=== PATIENT | female | born 1965 | race Caucasian/White ===

== ENCOUNTER 2017-09-04 09:10 | Day surgery (SDC) | payer BC ==
[~2017-09-04 09:10] MED LIST: Lactated Ringers 1,000 ML IV SCH; Midazolam 1 MG/ML 2 ML SDV ONE; Propofol 200 MG/20 ML SDV ONE; Sodium Chloride 0.9% 10 ML Syringe FLUSH PRN; Sodium Chloride 0.9% 2.5 ML Syringe FLUSH PRN; fentaNYL 100 MCG/2 ML SDV ONE
--- NOTE | 2017-09-04 11:25 | PCM.PREANE ---
Preanesthetic Assessment - Anesthesia/Transfusion/Family Hx Anesthesia History: Prior Anesthesia Without Reaction Family History of Anesthesia Reaction: No Transfusion History: No Prior Transfusion(s) Intubation History: Unknown - Review of Systems General: No Symptoms Pulmonary: No Symptoms Cardiovascular: No Symptoms Gastrointestinal: Constipation Neurological: No Symptoms Other: Reports: None - Physical Assessment NPO Status Date: 09/03/17 NPO Status Time: 23:00 O2 Sat by Pulse Oximetry: 97 Respiratory Rate: 17 Vital Signs: Last Vital Signs Temp 37.5 C 09/04/17 09:45 Pulse 85 09/04/17 09:45 Resp 17 09/04/17 09:45 BP 163/87 H 09/04/17 09:45 Pulse Ox 97 09/04/17 09:45 Height: 1.65 m Weight: 72.575 kg ASA Class: 3 Mental Status: Alert & Oriented x3 Airway Class: Mallampati = 2 Dentition: Reports: Dentures (upper) Thyro-Mental Finger Breadths: 3 Mouth Opening Finger Breadths: 2 ROM/Head Extension: Limited/Partial Lungs: Clear to Auscultation, Normal Respiratory Effort Cardiovascular: Regular Rate, Regular Rhythm - Allergies Allergies/Adverse Reactions: Allergies Allergy/AdvReac Type Severity Reaction Status Date / Time amoxicillin Allergy Itching Verified 08/29/17 16:49 ampicillin Allergy Itching Verified 08/29/17 16:49 morphine Allergy Itching Verified 08/29/17 16:49 - Blood Blood Available: No - Anesthesia Plan Pre-Op Medication Ordered: None - Acknowledgements Anesthesia Type Planned: MAC Pt an Appropriate Candidate for the Planned Anesthesia: Yes Alternatives and Risks of Anesthesia Discussed w Pt/Guardian: Yes Pt/Guardian Understands and Agrees with Anesthesia Plan: Yes PreAnesthesia Questionnaire Other HEENT History: wears glasses, contacts .... has upper denture and lower permanent partial denture Cardiovascular History: Reports: High Cholesterol, Hypertension Gastrointestinal History: Reports: Chronic Constipation, Chronic Diarrhea Musculoskeletal History: Reports: Arthritis Endocrine/Metabolic History: Reports: Hypothyroidism Dermatologic History: Reports: Psoriasis - Past Surgical History HEENT Surgical History: Reports: Naso-Sinus Surgery, Tonsillectomy - SUBSTANCE USE Smoking Status *Q: Current Every Day Smoker Tobacco Use Within Last Twelve Months: Cigarettes Recreational Drug Use History: No - HOME MEDS Home Medications: Home Meds Levothyroxine Sodium [Synthroid] 125 mcg PO DAILY 08/29/17 [History] Lisinopril/Hydrochlorothiazide [Lisinopril-Hctz 10-12.5 mg Tab] 1 tab PO DAILY 08/29/17 [History] atorvaSTATin Calcium [Atorvastatin Calcium] 40 mg PO DAILY 08/29/17 [History] - CURRENT (IN HOUSE) MEDS Current Meds: Current Medications Lactated Ringer's (Ringers, Lactated) 1,000 mls @ 125 mls/hr IV ASDIRECTED MELL Sodium Chloride (Saline Flush) 10 ml FLUSH ASDIRECTED PRN PRN Reason: Keep Vein Open Sodium Chloride (Saline Flush) 2.5 ml FLUSH ASDIRECTED PRN PRN Reason: Keep Vein Open Sodium Chloride (Saline Flush) 10 ml FLUSH ASDIRECTED PRN PRN Reason: Keep Vein Open Sodium Chloride (Saline Flush) 2.5 ml FLUSH ASDIRECTED PRN PRN Reason: Keep Vein Open Discontinued Medications Fentanyl (Sublimaze) Confirm Administered Dose 100 mcg .ROUTE .STK-MED ONE Stop: 09/04/17 07:43 Midazolam HCl (Versed 1 Mg/Ml) Confirm Administered Dose 2 mg .ROUTE .STK-MED ONE Stop: 09/04/17 07:43 Propofol (Diprivan 20 Ml) Confirm Administered Dose 200 mg .ROUTE .STK-MED ONE Stop: 09/04/17 07:43
[2017-09-04] MEDS ORDERED: Propofol 200 MG/20 ML SDV ONE (12:30)
--- NOTE | 2017-09-04 13:00 | PCM.OPNOTE ---
- General Post-Op/Procedure Note Date of Surgery/Procedure: 09/04/17 Operative Procedure(s): Diagnostic colonoscopy Findings: Sigmoid colon and rectal polyp, diverticulosis Pre Op Diagnosis: Chronic constipation that is worsening Post-Op Diagnosis: IBS-C, rectal polyp, sigmoid colon polyp, diverticulosis Anesthesia Technique: MEE Primary Surgeon: Sheila Truong Condition: Good
--- NOTE | 2017-09-04 20:32 | OR ---
SURGEON: ANNA ERNST MD DATE OF PROCEDURE: 09/04/2017 PREOPERATIVE DIAGNOSIS: Change in bowel habits. POSTOPERATIVE DIAGNOSES: 1. Diverticulosis. 2. Grade 3 hemorrhoids. 3. Sigmoid colon polyp. 4. Rectal polyp. 5. Irritable bowel syndrome/constipation type. PROCEDURE PERFORMED: Diagnostic colonoscopy. ANESTHESIA: MAC. INSTRUMENT USED: Olympus colonoscope. EXTENT OF EXAM: To the cecum. PREPARATION: Good. LIMITATIONS: None. INDICATION FOR EXAMINATION: The patient is a 52-year-old female, who complains of a change in her bowel habits with difficult to manage constipation. The decision was made to perform a diagnostic colonoscopy. We discussed the procedure, expected perioperative course, and risks including bleeding, infection, or damage to surrounding structures including perforation. The patient verbalized understanding and wishes to proceed. PROCEDURE IN DETAIL: The patient was brought in to the endoscopy suite and placed in the left lateral decubitus position. A time-out was completed verifying the patient's name, age, date of , allergies, and procedure to be performed. Monitored anesthesia care was induced and continuous oxygen was provided via nasal cannula. After adequate sedation was achieved, a digital rectal exam was performed. This exam revealed grade 3 hemorrhoids. A well lubricated colonoscope was then inserted in the rectum and advanced under direct visualization to the level of cecum. The cecum was identified by both visual and anatomic landmarks. A photograph was taken of the cecal cap. However, I was unable to retroflex the scope within the cecum due to looping of the scope more proximally. The scope was then fully withdrawn while examining the color, texture, anatomy, and integrity of the mucosa from the cecum to the anal canal. The patient was noted to have a small polyp in the sigmoid colon and in the rectum. Both were removed using cold biopsy forceps. The patient also had some mild diverticulosis within the distal aspect of the colon. The scope was then brought into the rectum and retroflexed to allow visualization of the anal canal opening. This confirmed the finding of hemorrhoids, but was otherwise normal. The scope was then straightened out and removed from the patient. The cecum to anus time was 26 minutes. The patient tolerated the procedure well and was taken to PACU in stable condition. ENDOSCOPIC DIAGNOSES: 1. Diverticulosis. 2. Grade 3 hemorrhoids. 3. Sigmoid colon polyp. 4. Rectal polyp. 5. Irritable bowel syndrome/constipation type. RECOMMENDATIONS: Follow up in clinic in 2 weeks. I started the patient on Dulcolax tablets daily to see if this improves her constipation. CHRISTAL ZAYAS /[id number]
== END 2017-09-04 14:00 | disposition home or self-care (01) ==
LOC: MERGE 09:10 → MW.SDS 09:10
PROVIDERS: ATTEND Surgery
DX: D12.5 Benign neoplasm of sigmoid colon (principal); K62.1 Rectal polyp; K57.30 Diverticulosis of large intestine without perforation or abscess without bleeding; K64.2 Third degree hemorrhoids; I10 Essential (primary) hypertension; E78.00 Pure hypercholesterolemia, unspecified; E03.9 Hypothyroidism, unspecified; Z88.1 Allergy status to other antibiotic agents; Z88.8 Allergy status to other drugs, medicaments and biological substances; Z79.899 Other long term (current) drug therapy; F17.210 Nicotine dependence, cigarettes, uncomplicated
CPT/HCPCS: 45380; 88305; J2250; J3010; J7120; J2704

== ENCOUNTER 2020-09-02 11:23 | Emergency (ER) | payer BC ==
[2020-09-02] MEDS ORDERED: methylPREDNISolone Sodium Succinate 125 MG/2 ML SDV IVPUSH ONE (11:26)
[2020-09-02] MEDS ORDERED: LORazepam 2 MG/ML SDV IVPUSH ONE (11:26)
[2020-09-02] MEDS ORDERED: Sodium Chloride 0.9% 2.5 ML Syringe FLUSH PRN (11:26)
[2020-09-02] MEDS ORDERED: Albuterol/Ipratropium 3.0-0.5 MG/3 ML Neb Soln NEB ONE (11:26)
[2020-09-02] MEDS ORDERED: Sodium Chloride 0.9% 10 ML Syringe FLUSH PRN (11:26)
--- NOTE | 2020-09-02 11:29 | EDM.PDOC ---
ED HPI GENERAL MEDICAL PROBLEM - General Chief Complaint: Respiratory Problem Stated Complaint: TROUBLE BREATHING Time Seen by Provider: 09/02/20 11:29 Source of Information: Reports: Patient History Limitations: Reports: Respiratory Distress - History of Present Illness INITIAL COMMENTS - FREE TEXT/NARRATIVE: 55-year-old female past medical history hypertension, hypothyroidism presents for difficulty breathing. History is limited secondary to respiratory distress. Patient was apparently in normal state of health and began choking while she was swallowing something and has ever since had difficulty breathing. She arrives quite tachypneic and using accessory muscles. We will get additional history after initial assessment. - Related Data Allergies Allergy/AdvReac Type Severity Reaction Status Date / Time amoxicillin Allergy Itching Verified 09/02/20 11:58 ampicillin Allergy Itching Verified 09/02/20 11:58 morphine Allergy Itching Verified 09/02/20 11:58 Home Meds: Home Meds Levothyroxine Sodium [Synthroid] 125 mcg PO DAILY 08/29/17 [History] Lisinopril/Hydrochlorothiazide [Lisinopril-Hctz 10-12.5 mg Tab] 1 tab PO DAILY 08/29/17 [History] atorvaSTATin Calcium [Atorvastatin Calcium] 40 mg PO DAILY 08/29/17 [History] Docusate Sodium [Dulcolax Stool Softener] 100 mg PO DAILY #30 capsule 09/04/17 [Rx] predniSONE [Prednisone] 40 mg PO DAILY 5 Days #10 tablet 09/02/20 [Rx] Past Medical History Other HEENT History: wears glasses, contacts .... has upper denture and lower permanent partial denture Cardiovascular History: Reports: High Cholesterol, Hypertension Gastrointestinal History: Reports: Chronic Constipation, Chronic Diarrhea Musculoskeletal History: Reports: Arthritis Endocrine/Metabolic History: Reports: Hypothyroidism Dermatologic History: Reports: Psoriasis - Past Surgical History HEENT Surgical History: Reports: Naso-Sinus Surgery, Tonsillectomy ED ROS GENERAL - Review of Systems Review Of Systems: Comprehensive ROS is negative, except as noted in HPI. ED EXAM, GENERAL - Physical Exam Exam: See Below Exam Limited By: No Limitations General Appearance: Alert, WD/WN, Anxious, Mild Distress Nose: Normal Inspection Throat/Mouth: Normal Oropharynx Head: Atraumatic, Normocephalic Neck: Normal Inspection Respiratory/Chest: Other (Bilateral diminished lung sounds, tachypnea, shallow breathing, no overt wheezing, transmitted upper airway noises) Cardiovascular: Normal Peripheral Pulses, No Edema, Tachycardia Extremities: Normal Inspection Neurological: Alert Psychiatric: Normal Affect, Anxious Skin Exam: Warm, Dry, Intact, Normal Color #1 Interpretation EKG Date: 09/02/20 Time: 11:21 Rhythm: NSR Rate (Beats/Min): 99 Palacios: Normal P-Wave: Present QRS: Normal ST-T: Normal QT: Normal TX/PQ Interval: 199 Comparison: NA - No Prior EKG EKG Interpretation Comments: Poor baseline obscures interpretation, no overt ischemic changes, normal sinus rhythm Course - Vital Signs Last Recorded V/S: Last Vital Signs Temp 97 F 09/02/20 11:23 Pulse 82 09/02/20 13:14 Resp 16 09/02/20 13:14 BP 98/70 09/02/20 13:14 Pulse Ox 94 L 09/02/20 13:14 - Orders/Labs/Meds Orders: Active Orders 24 hr Category Date Time Status Cardiac Monitoring [RC] . DIRECTED Care 09/02/20 11:27 Active EKG Documentation Completion [RC] STAT Care 09/02/20 11:26 Active Pulse Oximetry [RC] ASDIRECTED Care 09/02/20 11:27 Active RT Aerosol Therapy [RC] ASDIRECTED Care 09/02/20 11:26 Active Sodium Chloride 0.9% [Saline Flush] Med 09/02/20 11:26 Active 10 ml FLUSH ASDIRECTED PRN Sodium Chloride 0.9% [Saline Flush] Med 09/02/20 11:26 Active 2.5 ml FLUSH ASDIRECTED PRN Saline Lock Insert [OM.PC] Stat Oth 09/02/20 11:27 Ordered Medication Orders Sodium Chloride (Saline Flush) 10 ml FLUSH ASDIRECTED PRN PRN Reason: Keep Vein Open Last Admin: 09/02/20 11:32 Dose: 10 ml Documented by: KARTIK Sodium Chloride (Saline Flush) 2.5 ml FLUSH ASDIRECTED PRN PRN Reason: Keep Vein Open Last Admin: 09/02/20 11:32 Dose: 2.5 ml Documented by: KARTIK Labs: Laboratory Tests 09/02/20 09/02/20 09/02/20 Range/Units 11:31 11:31 11:31 WBC 10.87 (4.0-11.0) K/uL RBC 4.55 (4.30-5.90) M/uL Hgb 13.3 (12.0-16.0) g/dL Hct 40.3 (36.0-46.0) % MCV 88.6 (80.0-98.0) fL MCH 29.2 (27.0-32.0) pg MCHC 33.0 (31.0-37.0) g/dL RDW Std Deviation 40.5 (28.0-62.0) fl RDW Coeff of Deo 13 (11.0-15.0) % Plt Count 352 (150-400) K/uL MPV 9.40 (7.40-12.00) fL Neut % (Auto) 65.1 (48.0-80.0) % Lymph % (Auto) 27.8 (16.0-40.0) % Churchill % (Auto) 5.2 (0.0-15.0) % Eos % (Auto) 1.6 (0.0-7.0) % Baso % (Auto) 0.3 (0.0-1.5) % Neut # (Auto) 7.1 H (1.4-5.7) K/uL Lymph # (Auto) 3.0 H (0.6-2.4) K/uL Churchill # (Auto) 0.6 (0.0-0.8) K/uL Eos # (Auto) 0.2 (0.0-0.7) K/uL Baso # (Auto) 0.0 (0.0-0.1) K/uL Nucleated RBC % 0.0 /100WBC Nucleated RBCs # 0 K/uL INR APTT (18.6-31.3) SEC D-Dimer, Quantitative (0.0-0.50) mg/L FEU ABG pH (7.35-7.45) ABG pCO2 (35-45) mmHG ABG pO2 (75-100) mmHG ABG HCO3 (22-26) mEq/L ABG Total CO2 ABG Base Excess (-2.0-2.0) VBG pH 7.51 H (7.31-7.41) VBG pCO2 30 L (35-45) mmHG VBG pO2 36 (30-40) mmHG VBG HCO3 24 (22-30) mEq/L VBG Total CO2 21 L (41-51) mmol/L VBG Base Excess 1.6 (-3.0-3.0) Sodium 134 L (136-145) mmol/L Potassium 3.5 (3.5-5.1) mmol/L Chloride 96 L (98-107) mmol/L Carbon Dioxide 22.5 (21.0-32.0) mmol/L BUN 14 (7.0-18.0) mg/dL Creatinine 1.0 (0.6-1.0) mg/dL Est Cr Clr Drug Dosing TNP Estimated GFR (MDRD) 57.1 ml/min Glucose 187 H (74-106) mg/dL Calcium 9.5 (8.5-10.1) mg/dL Magnesium 1.7 L (1.8-2.4) mg/dL Total Bilirubin 0.9 (0.2-1.0) mg/dL AST 13 L (15-37) IU/L ALT 34 (14-63) IU/L Alkaline Phosphatase 66 (46-116) U/L Troponin I < 0.050 (0.000-0.056) ng/mL B-Natriuretic Peptide (<100) PG/ML Total Protein 7.7 (6.4-8.2) g/dL Albumin 3.7 (3.4-5.0) g/dL Globulin 4.0 (2.6-4.0) g/dL Albumin/Globulin Ratio 0.9 (0.9-1.6) Free T4 (0.76-1.46) ng/dL TSH 3rd Generation < 0.01 L (0.36-3.74) uIU/mL SARS-CoV-2 RNA (YANELY) (NEGATIVE) 09/02/20 09/02/20 09/02/20 Range/Units 11:31 11:31 11:31 WBC (4.0-11.0) K/uL RBC (4.30-5.90) M/uL Hgb (12.0-16.0) g/dL Hct (36.0-46.0) % MCV (80.0-98.0) fL MCH (27.0-32.0) pg MCHC (31.0-37.0) g/dL RDW Std Deviation (28.0-62.0) fl RDW Coeff of Deo (11.0-15.0) % Plt Count (150-400) K/uL MPV (7.40-12.00) fL Neut % (Auto) (48.0-80.0) % Lymph % (Auto) (16.0-40.0) % Churchill % (Auto) (0.0-15.0) % Eos % (Auto) (0.0-7.0) % Baso % (Auto) (0.0-1.5) % Neut # (Auto) (1.4-5.7) K/uL Lymph # (Auto) (0.6-2.4) K/uL Churchill # (Auto) (0.0-0.8) K/uL Eos # (Auto) (0.0-0.7) K/uL Baso # (Auto) (0.0-0.1) K/uL Nucleated RBC % /100WBC Nucleated RBCs # K/uL INR 1.01 APTT 26.1 (18.6-31.3) SEC D-Dimer, Quantitative 0.60 H (0.0-0.50) mg/L FEU ABG pH (7.35-7.45) ABG pCO2 (35-45) mmHG ABG pO2 (75-100) mmHG ABG HCO3 (22-26) mEq/L ABG Total CO2 ABG Base Excess (-2.0-2.0) VBG pH (7.31-7.41) VBG pCO2 (35-45) mmHG VBG pO2 (30-40) mmHG VBG HCO3 (22-30) mEq/L VBG Total CO2 (41-51) mmol/L VBG Base Excess (-3.0-3.0) Sodium (136-145) mmol/L Potassium (3.5-5.1) mmol/L Chloride (98-107) mmol/L Carbon Dioxide (21.0-32.0) mmol/L BUN (7.0-18.0) mg/dL Creatinine (0.6-1.0) mg/dL Est Cr Clr Drug Dosing Estimated GFR (MDRD) ml/min Glucose (74-106) mg/dL Calcium (8.5-10.1) mg/dL Magnesium (1.8-2.4) mg/dL Total Bilirubin (0.2-1.0) mg/dL AST (15-37) IU/L ALT (14-63) IU/L Alkaline Phosphatase (46-116) U/L Troponin I (0.000-0.056) ng/mL B-Natriuretic Peptide 34 (<100) PG/ML Total Protein (6.4-8.2) g/dL Albumin (3.4-5.0) g/dL Globulin (2.6-4.0) g/dL Albumin/Globulin Ratio (0.9-1.6) Free T4 2.09 H (0.76-1.46) ng/dL TSH 3rd Generation (0.36-3.74) uIU/mL SARS-CoV-2 RNA (YANELY) (NEGATIVE) 09/02/20 09/02/20 Range/Units 11:43 12:31 WBC (4.0-11.0) K/uL RBC (4.30-5.90) M/uL Hgb (12.0-16.0) g/dL Hct (36.0-46.0) % MCV (80.0-98.0) fL MCH (27.0-32.0) pg MCHC (31.0-37.0) g/dL RDW Std Deviation (28.0-62.0) fl RDW Coeff of Deo (11.0-15.0) % Plt Count (150-400) K/uL MPV (7.40-12.00) fL Neut % (Auto) (48.0-80.0) % Lymph % (Auto) (16.0-40.0) % Churchill % (Auto) (0.0-15.0) % Eos % (Auto) (0.0-7.0) % Baso % (Auto) (0.0-1.5) % Neut # (Auto) (1.4-5.7) K/uL Lymph # (Auto) (0.6-2.4) K/uL Churchill # (Auto) (0.0-0.8) K/uL Eos # (Auto) (0.0-0.7) K/uL Baso # (Auto) (0.0-0.1) K/uL Nucleated RBC % /100WBC Nucleated RBCs # K/uL INR APTT (18.6-31.3) SEC D-Dimer, Quantitative (0.0-0.50) mg/L FEU ABG pH 7.431 (7.35-7.45) ABG pCO2 39 (35-45) mmHG ABG pO2 53 L (75-100) mmHG ABG HCO3 26 (22-26) mEq/L ABG Total CO2 23.8 ABG Base Excess 1.8 (-2.0-2.0) VBG pH (7.31-7.41) VBG pCO2 (35-45) mmHG VBG pO2 (30-40) mmHG VBG HCO3 (22-30) mEq/L VBG Total CO2 (41-51) mmol/L VBG Base Excess (-3.0-3.0) Sodium (136-145) mmol/L Potassium (3.5-5.1) mmol/L Chloride (98-107) mmol/L Carbon Dioxide (21.0-32.0) mmol/L BUN (7.0-18.0) mg/dL Creatinine (0.6-1.0) mg/dL Est Cr Clr Drug Dosing Estimated GFR (MDRD) ml/min Glucose (74-106) mg/dL Calcium (8.5-10.1) mg/dL Magnesium (1.8-2.4) mg/dL Total Bilirubin (0.2-1.0) mg/dL AST (15-37) IU/L ALT (14-63) IU/L Alkaline Phosphatase (46-116) U/L Troponin I (0.000-0.056) ng/mL B-Natriuretic Peptide (<100) PG/ML Total Protein (6.4-8.2) g/dL Albumin (3.4-5.0) g/dL Globulin (2.6-4.0) g/dL Albumin/Globulin Ratio (0.9-1.6) Free T4 (0.76-1.46) ng/dL TSH 3rd Generation (0.36-3.74) uIU/mL SARS-CoV-2 RNA (YANELY) NEGATIVE (NEGATIVE) Meds: Medications Generic Name Dose Route Start Last Admin Trade Name Freq PRN Reason Stop Dose Admin Sodium Chloride 10 ml 09/02/20 11:26 09/02/20 11:32 Saline Flush FLUSH 10 ml ASDIRECTED PRN Administration Keep Vein Open Sodium Chloride 2.5 ml 09/02/20 11:26 09/02/20 11:32 Saline Flush FLUSH 2.5 ml ASDIRECTED PRN Administration Keep Vein Open Discontinued Medications Generic Name Dose Route Start Last Admin Trade Name Freq PRN Reason Stop Dose Admin Albuterol/Ipratropium 3 ml 09/02/20 11:26 09/02/20 11:33 Duoneb 3.0-0.5 Mg/3 Ml NEB 09/02/20 11:27 3 ml ONETIME ONE Administration Sodium Chloride 1,000 mls @ 999 mls/hr 09/02/20 12:23 09/02/20 12:25 Normal Saline IV 09/02/20 13:23 999 mls/hr .Bolus ONE Administration Iopamidol 100 ml 09/02/20 13:52 09/02/20 13:53 Isovue-370 (76%) IVPUSH 09/02/20 13:53 100 ml ONETIME ONE Administration Lorazepam 1 mg 09/02/20 11:26 09/02/20 11:33 Ativan IVPUSH 09/02/20 11:27 1 mg ONETIME ONE Administration Lorazepam Confirm 09/02/20 11:31 09/02/20 11:40 Ativan Administered 09/02/20 11:32 Not Given Dose 2 mg .ROUTE .STK-MED ONE Methylprednisolone Sodium Succinate 125 mg 09/02/20 11:26 09/02/20 11:33 Solu-Medrol IVPUSH 09/02/20 11:27 125 mg ONETIME ONE Administration Methylprednisolone Sodium Succinate Confirm 09/02/20 11:31 09/02/20 11:40 Solu-Medrol Administered 09/02/20 11:32 Not Given Dose 125 mg .ROUTE .STK-MED ONE - Re-Assessments/Exams Free Text/Narrative Re-Assessment/Exam: 09/02/20 11:31 Patient greatly clinically improved prior to any treatment after verbal coaching to relax. She is no longer tachypneic and no longer with upper airway noises. She is speaking in short sentences. Will give a small dose of Ativan. We will give DuoNeb and methylprednisolone. Will get cardiac/shortness of breath work- up labs and chest x-ray. EKG is nonischemic and normal. 09/02/20 11:45 Patient is clinically greatly improved. I was able to get more of a history now that she is no longer in any respiratory distress and has normal vitals. Patient states that she was drinking water when all of a sudden she started gasping for air. She states it does not feel like choking. She denies any nausea or vomiting. She does have a sensation of something stuck in her throat. Patient notes that she has several year history of difficulty with swallowing liquids and solids. She did have an EGD roughly 12 years ago for stomach acid which was normal, but she has not followed up since then. 09/02/20 12:13 Patient's D-dimer is positive. Will get CT angiogram of chest to rule out less likely pulmonary embolism. Considering patient's choking symptoms and history of esophageal dysmotility and feeling of something in her neck, will ask radiology to please also include soft tissue neck. 09/02/20 13:07 After reviewing patient's chart, I note that she has recently diagnosed left renal mass. She states that she is having this followed up in [place]. 5 days ago she went for biopsy but they were unsuccessful, however there was a left ureteral stent placed. She is supposed to go back in the next couple of weeks and get a biopsy. 09/02/20 13:39 Patient was placed on 2 L nasal cannula with improvement of O2 sats to 94% 09/02/20 14:45 Patient is feeling much better. Her O2 sats remained 90 to 93% on room air. Her blood pressure is normal. She notes that she uses an albuterol inhaler at home and uses Advair daily. She normally does not have problems with her COPD. Will discharge home with strict return precautions for any repeat difficulty breathing events. Will give 5-day course of prednisone. Departure - Departure Time of Disposition: 14:46 Disposition: Home, Self-Care 01 Condition: Good Clinical Impression: Shortness of breath, Esophageal dysmotility COPD (chronic obstructive pulmonary disease) Qualifiers: COPD type: chronic bronchitis Chronic bronchitis type: unspecified Qualified Code(s): J42 - Unspecified chronic bronchitis - Discharge Information Prescriptions: predniSONE [Prednisone] 40 mg PO DAILY 5 Days #10 tablet Instructions: Shortness of Breath, Adult, [id number], Esophageal Spasm Referrals: PCP,Unknown [Primary Care Provider] - Forms: ED Department Discharge Additional Instructions: Your labs are grossly unremarkable. Your thyroid hormone is very mildly elevated, you could have this evaluated by your primary care physician. Your CT scan does not show any evidence of a blood clot in the lungs. You have a left renal mass that I know you are already getting worked up. Not 100% sure what may made you so short of breath earlier, but we will treat this like a COPD exacerbation with steroids to help with any inflammation. Use your inhaler as well if you are feeling short of breath. If you have another episode like what happened earlier today than please come back to the hospital for reassessment. The following information is given to patients seen in the emergency department who are being discharged to home. This information is to outline your options for follow-up care. We provide all patients seen in our emergency department with a follow-up referral. The need for follow-up, as well as the timing and circumstances, are variable depending upon the specifics of your emergency department visit. If you don't have a primary care physician on staff, we will provide you with a referral. We always advise you to contact your personal physician following an emergency department visit to inform them of the circumstance of the visit and for follow-up with them and/or the need for any referrals to a consulting specialist. The emergency department will also refer you to a specialist when appropriate. This referral assures that you have the opportunity for follow-up care with a specialist. All of these measure are taken in an effort to provide you with optimal care, which includes your follow-up. Under all circumstances we always encourage you to contact your private physician who remains a resource for coordinating your care. When calling for follow-up care, please make the office aware that this follow-up is from your recent emergency room visit. If for any reason you are refused follow-up, please contact the [facility] Department at and asked to speak to the emergency department charge nurse. Please follow up with your primary care physician. If you do not have a primary care physician, see below: [facility] [address] [place], [place] [id number] My [facility] [address] [place], [place] [id number] [facility] [address] [place] [address] Sepsis Event Note (ED) - Focused Exam Vital Signs: Vital Signs Temp Pulse Resp BP Pulse Ox 09/02/20 13:14 82 16 98/70 94 L 09/02/20 12:55 93 L 09/02/20 12:21 110 H 82/55 L 09/02/20 11:59 109 H 81/53 L 09/02/20 11:49 105 H 20 89/57 L 95 09/02/20 11:23 97 F 106 H 20 111/68 98 - My Orders Last 24 Hours: My Active Orders 09/02/20 11:26 EKG Documentation Completion [RC] STAT Sodium Chloride 0.9% [Saline Flush] 10 ml FLUSH ASDIRECTED PRN Sodium Chloride 0.9% [Saline Flush] 2.5 ml FLUSH ASDIRECTED PRN 09/02/20 11:27 Cardiac Monitoring [RC] . DIRECTED Pulse Oximetry [RC] ASDIRECTED Saline Lock Insert [OM.PC] Stat - Assessment/Plan Last 24 Hours: My Active Orders 09/02/20 11:26 EKG Documentation Completion [RC] STAT Sodium Chloride 0.9% [Saline Flush] 10 ml FLUSH ASDIRECTED PRN Sodium Chloride 0.9% [Saline Flush] 2.5 ml FLUSH ASDIRECTED PRN 09/02/20 11:27 Cardiac Monitoring [RC] . DIRECTED Pulse Oximetry [RC] ASDIRECTED Saline Lock Insert [OM.PC] Stat
[2020-09-02] MEDS ORDERED: methylPREDNISolone Sodium Succinate 125 MG/2 ML SDV ONE (11:31)
[2020-09-02] MEDS ORDERED: LORazepam 2 MG/ML SDV ONE (11:31)
[2020-09-02 12:07] LABS: BLOOD UREA NITROGEN,BUN 14 mg/dL (7.0-18.0); CARBON DIOXIDE,CO2 22.5 mmol/L (21.0-32.0); CHLORIDE,CL 96 mmol/L (98-107); GLUCOSE RANDOM 187 mg/dL (74-106); POTASSIUM,K 3.5 mmol/L (3.5-5.1); SODIUM,NA 134 mmol/L (136-145)
--- NOTE | 2020-09-02 12:13 | CR ---
INDICATION: Shortness of breath TECHNIQUE: Chest 2 views. COMPARISON: Chest CT 08/24/2020, chest x-ray 06/05/2009 FINDINGS: The heart is normal in size. The pulmonary vasculature is within normal limits. There is a subtle streaky opacity within the right lower lobe. The lungs are otherwise clear. Negative for pleural effusion or pneumothorax. The bones are unremarkable. IMPRESSION: Subtle right lower lobe streaky opacity, may represent atelectasis or developing pneumonia in the appropriate clinical setting. Dictated by Ling Rojas MD @ Sep 02 2020 12:08PM Signed by Dr. Ling Rojas @ Sep 02 2020 12:12PM
[2020-09-02] MEDS ORDERED: Sodium Chloride 0.9% 1,000 ML IV ONE (12:23)
[2020-09-02] MEDS ORDERED: Iopamidol 755 Mg/ML 100 ML Bottle IVPUSH ONE (13:52)
--- NOTE | 2020-09-02 14:17 | CT ---
HISTORY: Sudden onset dyspnea. Elevated D-dimer. COMPARISON: CT of the chest, 08/24/2020. CT of the abdomen and pelvis, 07/25/2020. CT of the abdomen and pelvis, 10/16/2017. Chest 1 view, 09/02/2020. TECHNIQUE: CT pulmonary angiogram. Coronal/sagittal reconstruction images. 83 cc of Isovue-370 IV. FINDINGS: Main pulmonary artery measures 240 Hounsfield units. Typically, for a diagnostic quality pulmonary CTA, main pulmonary artery should exceed 250 Hounsfield units. The main pulmonary artery is normal in caliber. No pulmonary emboli are demonstrated. There is no evidence for right heart strain. There is no pleural or pericardial effusion. There is no mass identified at the thoracic inlet. The brachiocephalic trunk, left common carotid artery, and left subclavian artery are normal in caliber. The lung windows demonstrate no endobronchial mass. There is no bronchiectasis. There is dependent atelectasis. No honeycomb formation. No suspicious pulmonary nodule or acute airspace disease. There is no pneumothorax. Evaluation of the upper abdomen demonstrates a non cirrhotic liver morphology. There is an exophytic left renal lesion, which is stable from previous, and does not meet criteria for a benign cyst. This measures 12 mm on image 222, series 501. Liver morphology is non cirrhotic. Indeterminate enhancing lesion in segment VIII of the liver, which measures 7 mm on image 212, series 501. There is no upper abdominal lymphadenopathy. Liver lesion is stable from the recent CT from 07/25/2020. The bone windows demonstrate no suspicious bone lesions. The vertebral body heights are maintained on sagittal reconstruction images. The manubrium and body of the sternum are intact. IMPRESSION: 1. Suboptimal contrast bolus. 2. No pulmonary emboli. 3. No thoracic lymphadenopathy or suspicious pulmonary nodule. 4. Exophytic left renal lesion and enhancing subcentimeter lesion in segment VIII of the liver are stable from the recent multiphasic CT from 07/25/2020. 5. Non cirrhotic liver morphology. Assuming no contraindications, MRI of the abdomen may be obtained on a nonemergent basis to further assess. Please note that all CT scans at this facility use dose modulation, iterative reconstruction, and/or weight-based dosing when appropriate to reduce radiation dose to as low as reasonably achievable. Dictated by Karan Ng MD @ Sep 02 2020 2:05PM Signed by Dr. Karan Ng @ Sep 02 2020 2:14PM
== END 2020-09-02 15:01 | disposition home or self-care (01) ==
LOC: MW.ED 11:23
DX: J44.9 Chronic obstructive pulmonary disease, unspecified (principal); K22.8 Other specified diseases of esophagus; E78.00 Pure hypercholesterolemia, unspecified; I10 Essential (primary) hypertension; E03.9 Hypothyroidism, unspecified; Z20.822 Contact with and (suspected) exposure to COVID-19; Z88.0 Allergy status to penicillin; Z88.5 Allergy status to narcotic agent; Z79.899 Other long term (current) drug therapy
CPT/HCPCS: 36415; 36600; 71045; 71275; 80053; 82803; 83735; 83880; 84439; 84443; 84484; 85025; 85379; 85610; 85730; 87635; 93005; 96374; 96375; 99285; J2060; J2930; J7030; Q9967; 93010; 99284; J7620-GY; U0002

== ENCOUNTER 2021-07-10 11:01 | Emergency (ER) | payer BC ==
--- NOTE | 2021-07-10 11:25 | EDM.PDOC ---
<Raquel Craig - Last Filed: 07/10/21 11:40> ED HPI GENERAL MEDICAL PROBLEM - General Chief Complaint: Respiratory Problem Stated Complaint: COB CHEST PAIN COVID/FLY SYMPTOMS Time Seen by Provider: 07/10/21 11:03 - History of Present Illness INITIAL COMMENTS - FREE TEXT/NARRATIVE: 56-year-old female with a history of COPD, HTN, DM and hypothyroidism presents from walk-in clinic with complaints of 1 week of cough productive of thick white sputum, chills and now experiencing epigastric nonradiating pain. Patient has a history of reflux and ulcerative colitis. She is unvaccinated for Covid and influenza. Patient denies nausea, vomiting, diarrhea or changes in taste or smell. She does have decreased appetite and runny nose. Patient is saturating at 96% on room air. - Related Data Allergies Allergy/AdvReac Type Severity Reaction Status Date / Time amoxicillin Allergy Itching Verified 09/02/20 11:58 ampicillin Allergy Itching Verified 09/02/20 11:58 morphine Allergy Itching Verified 09/02/20 11:58 Home Meds: Home Meds Levothyroxine Sodium [Synthroid] 125 mcg PO DAILY 08/29/17 [History] Lisinopril/Hydrochlorothiazide [Lisinopril-Hctz 10-12.5 mg Tab] 1 tab PO DAILY 08/29/17 [History] atorvaSTATin Calcium [Atorvastatin Calcium] 40 mg PO DAILY 08/29/17 [History] Docusate Sodium [Dulcolax Stool Softener] 100 mg PO DAILY #30 capsule 09/04/17 [Rx] predniSONE [Prednisone] 40 mg PO DAILY 5 Days #10 tablet 09/02/20 [Rx] Albuterol Sulfate [Albuterol Sulfate Hfa] 8.5 gm IH Q4H PRN #1 hfa.aer.ad 07/10/21 [Rx] predniSONE [Prednisone] 60 mg PO DAILY #21 tablet 07/10/21 [Rx] ED ROS GENERAL - Review of Systems Review Of Systems: Comprehensive ROS is negative, except as noted in HPI. ED EXAM, GENERAL - Physical Exam Exam: See Below General Appearance: Alert, No Apparent Distress Eye Exam: Bilateral Eye: Normal Inspection Nose: Normal Inspection Throat/Mouth: Normal Inspection, Normal Oropharynx Head: Atraumatic, Normocephalic Neck: Normal Inspection, Supple Respiratory/Chest: No Respiratory Distress, Lungs Clear, Decreased Breath Sounds Cardiovascular: Normal Peripheral Pulses, Regular Rate, Rhythm, No JVD Peripheral Pulses: 2+: Dorsalis Pedis (L), Dorsalis Pedis (R) GI/Abdominal: Normal Bowel Sounds, Soft, Other (epigastric tender) Back Exam: Normal Inspection Extremities: Normal Inspection, No Pedal Edema. No: Magalis's Sign, Leg Pain Neurological: Alert, Oriented, CN II-XII Intact Skin Exam: No Rash Departure - Departure Disposition: Home, Self-Care 01 Clinical Impression: Pneumonia due to COVID-19 virus - Discharge Information Prescriptions: Albuterol Sulfate [Albuterol Sulfate Hfa] 8.5 gm IH Q4H PRN #1 hfa.aer.ad PRN Reason: Dyspnea predniSONE [Prednisone] 60 mg PO DAILY #21 tablet Instructions: COVID-19 Vaccine Information, 10 Things You Can Do to Manage Your COVID-19 Symptoms at Home - [facility] (01/26/2021), COVID-19: What to Do If You Are Sick- [facility] (09/27/2020), COVID-19: Quarantine vs. Isolation - [facility] (06/29/2020) Referrals: PCP,None [Primary Care Provider] - Forms: ED Department Discharge Additional Instructions: Your [place] went [place] [facility] [address] [place] [id number] [id number] The following information is given to patients seen in the emergency department who are being discharged to home. This information is to outline your options for follow-up care. We provide all patients seen in our emergency department with a follow-up referral. The need for follow-up, as well as the timing and circumstances, are variable depending upon the specifics of your emergency department visit. If you don't have a primary care physician on staff, we will provide you with a referral. We always advise you to contact your personal physician following an emergency department visit to inform them of the circumstance of the visit and for follow-up with them and/or the need for any referrals to a consulting specialist. The emergency department will also refer you to a specialist when appropriate. This referral assures that you have the opportunity for follow-up care with a specialist. All of these measure are taken in an effort to provide you with optimal care, which includes your follow-up. Under all circumstances we always encourage you to contact your private physician who remains a resource for coordinating your care. When calling for follow-up care, please make the office aware that this follow-up is from your recent emergency room visit. If for any reason you are refused follow-up, please contact the [facility] Emergency Department at and asked to speak to the emergency department charge nurse. - Problem List Review Problem List Initiated/Reviewed/Updated: Yes <Rayo Cunningham - Last Filed: 07/10/21 15:29> Past Medical History Other HEENT History: wears glasses, contacts .... has upper denture and lower permanent partial denture Cardiovascular History: Reports: High Cholesterol, Hypertension Respiratory History: Reports: COPD, Other (See Below) Other Respiratory History: not on home o2 Gastrointestinal History: Reports: Chronic Constipation, Chronic Diarrhea Genitourinary History: Reports: Renal Calculus Musculoskeletal History: Reports: Arthritis Endocrine/Metabolic History: Reports: Hypothyroidism Dermatologic History: Reports: Psoriasis - Past Surgical History HEENT Surgical History: Reports: Naso-Sinus Surgery, Tonsillectomy Social & Family History - Family History Family Medical History: No Pertinent Family History - Caffeine Use Caffeine Use: Reports: None #1 Interpretation EKG Interpretation Comments: EKG done on 07/10/2021 at 11:16 AM shows sinus rhythm heart rate 79 MD 199 QT duration 444 [place] 93 there is some repolarization abnormalities with T wave changes in V1 through V4 and no prior for comparison. Impression no obvious acute injury Course - Vital Signs Last Recorded V/S: Last Vital Signs Temp 36.2 C 07/10/21 11:43 Pulse 82 07/10/21 13:09 Resp 20 07/10/21 13:09 BP 112/69 07/10/21 13:09 Pulse Ox 96 07/10/21 13:09 - Orders/Labs/Meds Orders: Active Orders 24 hr Category Date Time Status RT Post Treatment Assessment [RC] Click to Edit Care 07/10/21 13:39 Active RT Pre-Treatment Assessment [RC] Click to Edit Care 07/10/21 13:39 Active Sodium Chloride 0.9% [Saline Flush] Med 07/10/21 11:34 Active 10 ml FLUSH ASDIRECTED PRN Sodium Chloride 0.9% [Saline Flush] Med 07/10/21 11:34 Active 2.5 ml FLUSH ASDIRECTED PRN Saline Lock Insert [OM.PC] Stat Oth 07/10/21 11:34 Ordered Medication Orders Sodium Chloride (Sodium Chloride 0.9% 10 Ml Syringe) 10 ml FLUSH ASDIRECTED PRN PRN Reason: Keep Vein Open Last Admin: 07/10/21 12:38 Dose: 10 ml Documented by: RIRI Sodium Chloride (Sodium Chloride 0.9% 2.5 Ml Syringe) 2.5 ml FLUSH ASDIRECTED PRN PRN Reason: Keep Vein Open Last Admin: 07/10/21 12:38 Dose: 2.5 ml Documented by: RIRI Labs: Laboratory Tests 07/10/21 07/10/21 07/10/21 Range/Units 11:51 12:15 12:15 WBC 5.66 (4.0-11.0) K/uL RBC 4.16 L (4.30-5.90) M/uL Hgb 12.6 (12.0-16.0) g/dL Hct 38.1 (36.0-46.0) % MCV 91.6 (80.0-98.0) fL MCH 30.3 (27.0-32.0) pg MCHC 33.1 (31.0-37.0) g/dL RDW Std Deviation 45.9 (28.0-62.0) fl RDW Coeff of Deo 14 (11.0-15.0) % Plt Count 207 (150-400) K/uL MPV 10.30 (7.40-12.00) fL Add Manual Diff YES Neutrophils % (Manual) 57 (48.0-80.0) % Band Neutrophils % 2 % Lymphocytes % (Manual) 35 (16.0-40.0) % Monocytes % (Manual) 5 (0.0-15.0) % Eosinophils % (Manual) 1 (0.0-7.0) % Nucleated RBC % 0.0 /100WBC Absolute Seg Neuts 3.2 (1.4-5.7) Band Neutrophils # 0.1 Lymphocytes # (Manual) 2.0 (0.6-2.4) Monocytes # (Manual) 0.3 (0.0-0.8) Eosinophils # (Manual) 0.1 (0.0-0.7) Nucleated RBCs # 0 K/uL D-Dimer, Quantitative (0.0-0.50) mg/L FEU Sodium 136 (136-145) mmol/L Potassium 3.8 (3.5-5.1) mmol/L Chloride 97 L (98-107) mmol/L Carbon Dioxide 29.6 (21.0-32.0) mmol/L BUN 17 (7.0-18.0) mg/dL Creatinine 1.1 H (0.6-1.0) mg/dL Est Cr Clr Drug Dosing 52.19 mL/min Estimated GFR (MDRD) 51.0 ml/min Glucose 117 H (74-106) mg/dL Calcium 9.7 (8.5-10.1) mg/dL Total Bilirubin (0.2-1.0) mg/dL Direct Bilirubin (0.0-0.5) mg/dL Indirect Bilirubin AST (15-37) IU/L ALT (14-63) IU/L Alkaline Phosphatase (46-116) U/L Troponin I < 0.050 (0.000-0.056) ng/mL Total Protein (6.4-8.2) g/dL Albumin (3.4-5.0) g/dL Globulin (2.6-4.0) g/dL Albumin/Globulin Ratio (0.9-1.6) Influenza Type A RNA NEGATIVE (NEGATIVE) Influenza Type B RNA NEGATIVE (NEGATIVE) SARS-CoV-2 RNA (YANELY) POSITIVE H (NEGATIVE) 07/10/21 07/10/21 Range/Units 12:15 12:15 WBC (4.0-11.0) K/uL RBC (4.30-5.90) M/uL Hgb (12.0-16.0) g/dL Hct (36.0-46.0) % MCV (80.0-98.0) fL MCH (27.0-32.0) pg MCHC (31.0-37.0) g/dL RDW Std Deviation (28.0-62.0) fl RDW Coeff of Deo (11.0-15.0) % Plt Count (150-400) K/uL MPV (7.40-12.00) fL Add Manual Diff Neutrophils % (Manual) (48.0-80.0) % Band Neutrophils % % Lymphocytes % (Manual) (16.0-40.0) % Monocytes % (Manual) (0.0-15.0) % Eosinophils % (Manual) (0.0-7.0) % Nucleated RBC % /100WBC Absolute Seg Neuts (1.4-5.7) Band Neutrophils # Lymphocytes # (Manual) (0.6-2.4) Monocytes # (Manual) (0.0-0.8) Eosinophils # (Manual) (0.0-0.7) Nucleated RBCs # K/uL D-Dimer, Quantitative 0.56 H (0.0-0.50) mg/L FEU Sodium (136-145) mmol/L Potassium (3.5-5.1) mmol/L Chloride (98-107) mmol/L Carbon Dioxide (21.0-32.0) mmol/L BUN (7.0-18.0) mg/dL Creatinine (0.6-1.0) mg/dL Est Cr Clr Drug Dosing mL/min Estimated GFR (MDRD) ml/min Glucose (74-106) mg/dL Calcium (8.5-10.1) mg/dL Total Bilirubin 0.5 (0.2-1.0) mg/dL Direct Bilirubin 0.10 (0.0-0.5) mg/dL Indirect Bilirubin 0.40 AST 28 (15-37) IU/L ALT 28 (14-63) IU/L Alkaline Phosphatase 59 (46-116) U/L Troponin I (0.000-0.056) ng/mL Total Protein 8.1 (6.4-8.2) g/dL Albumin 3.6 (3.4-5.0) g/dL Globulin 4.5 H (2.6-4.0) g/dL Albumin/Globulin Ratio 0.8 L (0.9-1.6) Influenza Type A RNA (NEGATIVE) Influenza Type B RNA (NEGATIVE) SARS-CoV-2 RNA (YANELY) (NEGATIVE) Meds: Medications Generic Name Dose Route Start Last Admin Trade Name Freq PRN Reason Stop Dose Admin Sodium Chloride 10 ml 07/10/21 11:34 07/10/21 12:38 Sodium Chloride 0.9% 10 Ml Syringe FLUSH 10 ml ASDIRECTED PRN Administration Keep Vein Open Sodium Chloride 2.5 ml 07/10/21 11:34 07/10/21 12:38 Sodium Chloride 0.9% 2.5 Ml Syringe FLUSH 2.5 ml ASDIRECTED PRN Administration Keep Vein Open Discontinued Medications Generic Name Dose Route Start Last Admin Trade Name Emmettq PRN Reason Stop Dose Admin Albuterol 8 gm 07/10/21 13:39 Albuterol 8 Gm Inhaler INH 07/10/21 13:40 ONETIME STA Iopamidol 100 ml 07/10/21 14:35 07/10/21 14:35 Iopamidol 755 Mg/Ml 500 Ml Multipack Bottle IVPUSH 07/10/21 14:36 100 ml ONETIME STA Administration Methylprednisolone Sodium Succinate 125 mg 07/10/21 13:40 Methylprednisolone Sodium Succinate 125 Mg/2 Ml Sdv IVPUSH 07/10/21 13:41 ONETIME ONE - Re-Assessments/Exams Free Text/Narrative Re-Assessment/Exam: 07/10/21 14:11 Dr. Acosta and patient thinks she would be a candidate for discharge on oxygen if she does not have a pulmonary embolus. D-dimer elevated. See orders 07/10/21 15:[address] is negative for pulmonary embolus and shows infiltrates right greater than left. has evaluated patient and person and recommends bron chodilators, steroids, and patient does qualify for monoclonal antibodies. Departure - Departure Time of Disposition: 15:29 Condition: Good Sepsis Event Note (ED) - Focused Exam Vital Signs: Vital Signs Temp Pulse Resp BP Pulse Ox 07/10/21 13:09 82 20 112/69 96 07/10/21 11:43 36.2 C 81 20 100/73 92 L - My Orders Last 24 Hours: My Active Orders 07/10/21 11:34 Sodium Chloride 0.9% [Saline Flush] 10 ml FLUSH ASDIRECTED PRN Sodium Chloride 0.9% [Saline Flush] 2.5 ml FLUSH ASDIRECTED PRN Saline Lock Insert [OM.PC] Stat 07/10/21 13:39 RT Post Treatment Assessment [RC] Click to Edit RT Pre-Treatment Assessment [RC] Click to Edit - Assessment/Plan Last 24 Hours: My Active Orders 07/10/21 11:34 Sodium Chloride 0.9% [Saline Flush] 10 ml FLUSH ASDIRECTED PRN Sodium Chloride 0.9% [Saline Flush] 2.5 ml FLUSH ASDIRECTED PRN Saline Lock Insert [OM.PC] Stat 07/10/21 13:39 RT Post Treatment Assessment [RC] Click to Edit RT Pre-Treatment Assessment [RC] Click to Edit
[2021-07-10] MEDS ORDERED: Sodium Chloride 0.9% 2.5 ML Syringe FLUSH PRN (11:34)
[2021-07-10] MEDS ORDERED: Sodium Chloride 0.9% 10 ML Syringe FLUSH PRN (11:34)
[2021-07-10 12:37] LABS: CORONAVIRUS COVID-19 NAA POSITIVE (NEGATIVE); INFLUENZA A NAA NEGATIVE (NEGATIVE); INFLUENZA B NAA NEGATIVE (NEGATIVE)
--- NOTE | 2021-07-10 12:47 | CR ---
Indication: Chest pain Technique: Chest 1 view Comparison: September 02, 2020 Findings/Impression: Normal cardiomediastinal silhouette. New faint patchy opacities in right mid and lower lung gary concerning for infection, including COVID-19. No effusion or pneumothorax. Osseous structures are intact. Dictated by Mery Esposito MD @ 07/10/2021 12:46:04 PM (Electronically Signed)
[2021-07-10 12:52] LABS: BLOOD UREA NITROGEN,BUN 17 mg/dL (7.0-18.0); CARBON DIOXIDE,CO2 29.6 mmol/L (21.0-32.0); CHLORIDE,CL 97 mmol/L (98-107); GLUCOSE RANDOM 117 mg/dL (74-106); POTASSIUM,K 3.8 mmol/L (3.5-5.1); SODIUM,NA 136 mmol/L (136-145)
[2021-07-10] MEDS ORDERED: Albuterol 8 GM Inhaler INH STA (13:39)
[2021-07-10] MEDS ORDERED: methylPREDNISolone Sodium Succinate 125 MG/2 ML SDV IVPUSH ONE (13:40)
[2021-07-10 13:55] LABS: BILIRUBIN INDIRECT 0.4
[2021-07-10] MEDS ORDERED: Iopamidol 755 MG/ML 500 ML Multipack Bottle IVPUSH STA (14:35)
--- NOTE | 2021-07-10 15:18 | CT ---
INDICATION: COVID positive, right upper quadrant and chest pain, elevated D-dimer TECHNIQUE: CT chest pulmonary PE protocol acquired with 100 cc Isovue 370 IV contrast. COMPARISON: Chest CT September 02, 2020, chest radiograph July 10, 2021 FINDINGS: Cardiovascular structures: Normal vascular enhancement of the pulmonary arteries, no sign of pulmonary embolism. Heart size is normal. Coronary artery calcifications. No sign of aneurysm in the thoracic aorta. Mediastinum and [place]: No mass or adenopathy. Lungs: Bilateral ground-glass opacities, right greater than left. Pleura and pericardium: No effusions. Chest wall and axilla: No mass or adenopathy. Upper abdomen: Unremarkable. Bones: No significant findings. IMPRESSION: No pulmonary embolism. Bilateral ground-glass opacities, typical for COVID-19 infection. Coronary artery disease. Please note that all CT scans at this facility use dose modulation, iterative reconstruction, and/or weight-based dosing when appropriate to reduce radiation dose to as low as reasonably achievable. Dictated by Mery Esposito MD @ 07/10/2021 3:16:50 PM (Electronically Signed)
== END 2021-07-10 17:26 | disposition home or self-care (01) ==
LOC: MW.ED 11:01
DX: U07.1 COVID-19 (principal); J12.82 Pneumonia due to coronavirus disease 2019; I10 Essential (primary) hypertension; E78.00 Pure hypercholesterolemia, unspecified; J44.9 Chronic obstructive pulmonary disease, unspecified; E03.9 Hypothyroidism, unspecified; Z88.0 Allergy status to penicillin; Z88.5 Allergy status to narcotic agent; Z79.899 Other long term (current) drug therapy
CPT/HCPCS: 0240U; 36415; 71045; 71275; 80048; 80076; 84484; 85025; 85379; 93005; 96374; 99284; A9270; J2930; Q9967

== ENCOUNTER 2022-10-11 07:54 | Day surgery (SDC) | payer BC ==
[~2022-10-11 07:54] MED LIST changes: -Sodium Chloride 0.9% 10 ML Syringe FLUSH PRN; -Sodium Chloride 0.9% 2.5 ML Syringe FLUSH PRN
[2022-10-11] MEDS ORDERED: Propofol 200 MG/20 ML SDV ONE ×2 (09:39→09:59)
== END 2022-10-11 11:18 | disposition home or self-care (01) ==
LOC: MW.SDS 07:54
PROVIDERS: ATTEND Surgery
DX: K63.5 Polyp of colon (principal); K29.50 Unspecified chronic gastritis without bleeding; K29.80 Duodenitis without bleeding; K31.7 Polyp of stomach and duodenum; K57.30 Diverticulosis of large intestine without perforation or abscess without bleeding; K64.8 Other hemorrhoids; K22.89 Other specified disease of esophagus; K62.89 Other specified diseases of anus and rectum; K21.9 Gastro-esophageal reflux disease without esophagitis; J44.9 Chronic obstructive pulmonary disease, unspecified; E11.9 Type 2 diabetes mellitus without complications; E03.9 Hypothyroidism, unspecified; I10 Essential (primary) hypertension; E78.5 Hyperlipidemia, unspecified; K58.1 Irritable bowel syndrome with constipation; Z87.19 Personal history of other diseases of the digestive system; Z53.09 Procedure and treatment not carried out because of other contraindication; Z88.1 Allergy status to other antibiotic agents; Z88.5 Allergy status to narcotic agent; Z79.84 Long term (current) use of oral hypoglycemic drugs; Z79.890 Hormone replacement therapy; Z79.899 Other long term (current) drug therapy
CPT/HCPCS: 43239; 45380; 82947; J2250; J2704; J3010; J7120; 00813

== ENCOUNTER 2023-06-29 01:20 | Inpatient (IN) | payer BC ==
[2023-06-29] MEDS ORDERED: Sodium Chloride 0.9% 1,000 ML IV ONE ×3 (01:36→04:22)
[2023-06-29] MEDS ORDERED: Metoclopramide 10 MG/2 ML SDV IVPUSH ONE (01:36)
[2023-06-29] MEDS ORDERED: Sodium Chloride 0.9% 2.5 ML Syringe FLUSH PRN (01:37)
[2023-06-29] MEDS ORDERED: Sodium Chloride 0.9% 10 ML Syringe FLUSH PRN (01:37)
[2023-06-29 01:58] LABS: BASOPHILS PERCENT AUTO 0.4 % (0.0-1.0); EOSINOPHILS ABSOLUTE AUTO 0.07 K/uL (0.00-0.45); EOSINOPHILS PERCENT AUTO 0.3 % (0.0-6.0); HEMATOCRIT 45.9 % (37.0-47.0); HEMOGLOBIN 15.3 g/dL (12.0-16.0); IMMATURE GRAN ABSOLUTE AUTO 0.18 K/uL (0.00-0.05); IMMATURE GRAN PERCENT AUTO 0.7 % (0.0-0.4); LYMPHOCYTES ABSOLUTE AUTO 2.57 K/uL (1.00-4.80); LYMPHOCYTES PERCENT AUTO 9.6 % (24.0-44.0); MEAN CORPUSCULAR HEMOGLOBIN 28.9 pg (28.0-32.0); MEAN CORPUSCULAR HGB CONC 33.3 g/dL (32.0-36.0); MEAN CORPUSCULAR VOLUME 86.6 fL (83.0-99.0); MEAN PLATELET VOLUME 9.3 fL (9.4-12.3); MONOCYTES ABSOLUTE AUTO 0.44 K/uL (0.00-0.80); MONOCYTES PERCENT AUTO 1.7 % (0.0-8.0); NEUTROPHILS ABSOLUTE AUTO 23.29 K/uL (1.80-7.70); NEUTROPHILS PERCENT AUTO 87.3 % (41.0-71.0); PLATELET COUNT,PLT 427 K/uL (150-400); WHITE BLOOD CELL COUNT,WBC 26.65 K/uL (3.9-11.3)
[2023-06-29] MEDS ORDERED: Iopamidol 755 MG/ML 500 ML Multipack Bottle IVPUSH ONE (02:13)
[2023-06-29 02:20] LABS: A/G RATIO 1.2 (0.9-1.6); ALBUMIN 4.2 g/dL (3.4-5.0); BILIRUBIN TOTAL 1.1 mg/dL (0.2-1.0); CALCIUM 9.5 mg/dL (8.5-10.1); CARBON DIOXIDE,CO2 30.8 mmol/L (21.0-32.0); CREATININE 1.3 mg/dL (0.6-1.0); EST CRCL DRUG DOSING (CG) 41.41 mL/min; POTASSIUM,K 3.5 mmol/L (3.5-5.1); PROTEIN TOTAL,TP 7.6 g/dL (6.4-8.2)
[2023-06-29 03:26] LABS: APPEARANCE,URINE CLEAR; BILIRUBIN,URINE NEGATIVE (NEGATIVE); COLOR,URINE YELLOW; GLUCOSE,URINE NEGATIVE (NEGATIVE); KETONES,URINE NEGATIVE (NEGATIVE); LEUKOCYTE ESTERASE,URINE NEGATIVE (NEGATIVE); NITRITE,URINE NEGATIVE (NEGATIVE); OCCULT BLOOD,URINE NEGATIVE (NEGATIVE); PROTEIN,URINE NEGATIVE (NEGATIVE); UROBILINOGEN,URINE 0.2 EU/dL (<2.0)
[2023-06-29 03:33] LABS: BACTERIA,URINE FEW (NEGATIVE); HYALINE CASTS,URINE 0-1 (0-2/LPF); MUCUS,URINE LIGHT (NONE-MOD); RBC,URINE 0-2 (0-2/HPF); SQUAMOUS EPITHELIAL CELLS,UR OCCASIONAL; WBC,URINE 0-2 (0-5/HPF)
[2023-06-29 04:08] LABS: LACTIC ACID 3.1 mmol/L (0.4-2.0)
[2023-06-29] MEDS ORDERED: metroNIDAZOLE/Normal Saline 500 MG in Premix Bag 1 BAG IV ONE (04:20)
[2023-06-29] MEDS: Ciprofloxacin in D5W 400 MG in Premix Bag 1 BAG IV SCH ×4 (04:26→17:42)
[2023-06-29] MEDS ORDERED: Polyethylene Glycol 3350 Powder 17 GM Packet PO PRN (05:45)
[2023-06-29] MEDS ORDERED: Albuterol/Ipratropium 3.0-0.5 MG/3 ML Neb Soln NEB PRN (05:45)
[2023-06-29] MEDS ORDERED: Sodium Chloride 0.9% 1,000 ML IV SCH ×2 (05:45→15:15)
[2023-06-29] MEDS ORDERED: Ondansetron 4 MG/2 ML SDV IVPUSH PRN (05:45)
[2023-06-29] MEDS ORDERED: metroNIDAZOLE/Normal Saline 500 MG in Premix Bag 1 BAG IV SCH (06:00)
[2023-06-29] MEDS ORDERED: Ciprofloxacin in D5W 400 MG in Premix Bag 1 BAG IV SCH ×2 (06:00)
[2023-06-29 06:31] LABS: LACTIC ACID 2.6 mmol/L (0.4-2.0)
[2023-06-29] MEDS: Acetaminophen 325 MG Tab PO PRN (07:14)
[2023-06-29] MEDS: Pantoprazole 40 MG in Sodium Chloride 0.9% 10 ML IVPUSH SCH ×2 (10:10→20:54)
[2023-06-29] MEDS: Sodium Chloride 0.9% 1,000 ML IV SCH ×2 (10:13→11:24)
[2023-06-29] MEDS ORDERED: Levothyroxine 125 MCG Tab PO SCH (11:45)
[2023-06-29] MEDS ORDERED: Naloxone 0.4 MG/ML SDV IVPUSH PRN (11:57)
[2023-06-29 12:09] LABS: BASOPHILS ABSOLUTE AUTO 0.03 K/uL (0.00-0.20); BASOPHILS PERCENT AUTO 0.3 % (0.0-1.0); HEMATOCRIT 33.9 % (37.0-47.0); HEMOGLOBIN 11.4 g/dL (12.0-16.0); IMMATURE GRAN ABSOLUTE AUTO 0.02 K/uL (0.00-0.05); IMMATURE GRAN PERCENT AUTO 0.2 % (0.0-0.4); LYMPHOCYTES ABSOLUTE AUTO 0.87 K/uL (1.00-4.80); MEAN CORPUSCULAR HEMOGLOBIN 29.1 pg (28.0-32.0); MEAN CORPUSCULAR HGB CONC 33.6 g/dL (32.0-36.0); MEAN CORPUSCULAR VOLUME 86.5 fL (83.0-99.0); MEAN PLATELET VOLUME 9.2 fL (9.4-12.3); MONOCYTES ABSOLUTE AUTO 0.24 K/uL (0.00-0.80); MONOCYTES PERCENT AUTO 2.5 % (0.0-8.0); NEUTROPHILS ABSOLUTE AUTO 8.38 K/uL (1.80-7.70); PLATELET COUNT,PLT 215 K/uL (150-400); RED BLOOD CELL COUNT 3.92 M/uL (4.10-5.30); WHITE BLOOD CELL COUNT,WBC 9.64 K/uL (3.9-11.3)
[2023-06-29] MEDS ORDERED: Glucagon,Human Recombinant 1 MG Vial IM PRN (12:22)
[2023-06-29] MEDS ORDERED: 50% Dextrose in Water 50 ML Syringe IVPUSH PRN (12:22)
[2023-06-29] MEDS: HYDROmorphone 1 MG/ML Syringe IVPUSH PRN ×2 (12:35→19:31)
[2023-06-29 12:40] LABS: CARBON DIOXIDE,CO2 26.8 mmol/L (21.0-32.0); EST CRCL DRUG DOSING (CG) 59.81 mL/min; POTASSIUM,K 3.7 mmol/L (3.5-5.1)
[2023-06-29] MEDS: metroNIDAZOLE/Normal Saline 500 MG in Premix Bag 1 BAG IV SCH ×3 (12:43→23:33)
[2023-06-29 13:28] LABS: BASOPHILS ABSOLUTE AUTO 0.03 K/uL (0.00-0.20); BASOPHILS PERCENT AUTO 0.3 % (0.0-1.0); EOSINOPHILS ABSOLUTE AUTO 0.15 K/uL (0.00-0.45); EOSINOPHILS PERCENT AUTO 1.6 % (0.0-6.0); HEMATOCRIT 34.8 % (37.0-47.0); IMMATURE GRAN ABSOLUTE AUTO 0.03 K/uL (0.00-0.05); IMMATURE GRAN PERCENT AUTO 0.3 % (0.0-0.4); LYMPHOCYTES ABSOLUTE AUTO 0.98 K/uL (1.00-4.80); LYMPHOCYTES PERCENT AUTO 10.3 % (24.0-44.0); MEAN CORPUSCULAR HEMOGLOBIN 29.9 pg (28.0-32.0); MEAN CORPUSCULAR HGB CONC 34.5 g/dL (32.0-36.0); MEAN CORPUSCULAR VOLUME 86.8 fL (83.0-99.0); MEAN PLATELET VOLUME 9.4 fL (9.4-12.3); MONOCYTES PERCENT AUTO 2.1 % (0.0-8.0); NEUTROPHILS ABSOLUTE AUTO 8.14 K/uL (1.80-7.70); NEUTROPHILS PERCENT AUTO 85.4 % (41.0-71.0); PLATELET COUNT,PLT 227 K/uL (150-400); RED BLOOD CELL COUNT 4.01 M/uL (4.10-5.30); WHITE BLOOD CELL COUNT,WBC 9.53 K/uL (3.9-11.3)
[2023-06-29 14:07] LABS: A/G RATIO 1.1 (0.9-1.6); ALBUMIN 2.7 g/dL (3.4-5.0); BILIRUBIN TOTAL 0.9 mg/dL (0.2-1.0); CALCIUM 6.8 mg/dL (8.5-10.1); CREATININE 0.9 mg/dL (0.6-1.0); PROTEIN TOTAL,TP 5.1 g/dL (6.4-8.2)
[2023-06-29] MEDS: Insulin Aspart 100 Units/ML 3 ML Pen SUBCUT SCH ×2 (17:57→17:58)
[2023-06-29] MEDS: Formoterol/Mometasone 200-5 MCG 8.8 GM Inhaler INH SCH (20:54)
[2023-06-29] MEDS: traZODone 50 MG Tab PO SCH (20:54)
[2023-06-30] MEDS: Acetaminophen 325 MG Tab PO PRN ×4 (03:05→20:43)
[2023-06-30] MEDS: Sodium Chloride 0.9% 1,000 ML IV SCH ×2 (03:06→13:32)
[2023-06-30] MEDS: Ciprofloxacin in D5W 400 MG in Premix Bag 1 BAG IV SCH ×4 (03:49→16:10)
[2023-06-30] MEDS: metroNIDAZOLE/Normal Saline 500 MG in Premix Bag 1 BAG IV SCH ×3 (05:04→21:22)
[2023-06-30] MEDS: Insulin Aspart 100 Units/ML 3 ML Pen SUBCUT SCH ×3 (06:43→17:00)
[2023-06-30 06:46] LABS: BASOPHILS ABSOLUTE AUTO 0.02 K/uL (0.00-0.20); BASOPHILS PERCENT AUTO 0.3 % (0.0-1.0); EOSINOPHILS ABSOLUTE AUTO 0.15 K/uL (0.00-0.45); EOSINOPHILS PERCENT AUTO 2.6 % (0.0-6.0); HEMATOCRIT 33.2 % (37.0-47.0); HEMOGLOBIN 11.1 g/dL (12.0-16.0); IMMATURE GRAN ABSOLUTE AUTO 0.02 K/uL (0.00-0.05); IMMATURE GRAN PERCENT AUTO 0.3 % (0.0-0.4); LYMPHOCYTES ABSOLUTE AUTO 1.74 K/uL (1.00-4.80); LYMPHOCYTES PERCENT AUTO 29.7 % (24.0-44.0); MEAN CORPUSCULAR HEMOGLOBIN 29.6 pg (28.0-32.0); MEAN CORPUSCULAR HGB CONC 33.4 g/dL (32.0-36.0); MEAN CORPUSCULAR VOLUME 88.5 fL (83.0-99.0); MEAN PLATELET VOLUME 9.6 fL (9.4-12.3); MONOCYTES ABSOLUTE AUTO 0.26 K/uL (0.00-0.80); MONOCYTES PERCENT AUTO 4.4 % (0.0-8.0); NEUTROPHILS ABSOLUTE AUTO 3.67 K/uL (1.80-7.70); NEUTROPHILS PERCENT AUTO 62.7 % (41.0-71.0); PLATELET COUNT,PLT 193 K/uL (150-400); RED BLOOD CELL COUNT 3.75 M/uL (4.10-5.30); WHITE BLOOD CELL COUNT,WBC 5.86 K/uL (3.9-11.3)
[2023-06-30 07:10] LABS: ALBUMIN 2.4 g/dL (3.4-5.0); BILIRUBIN TOTAL 0.6 mg/dL (0.2-1.0); CALCIUM 7.1 mg/dL (8.5-10.1); CARBON DIOXIDE,CO2 25.8 mmol/L (21.0-32.0); EST CRCL DRUG DOSING (CG) 53.83 mL/min; MAGNESIUM 1.3 mg/dL (1.8-2.4); POTASSIUM,K 3.1 mmol/L (3.5-5.1); PROTEIN TOTAL,TP 4.8 g/dL (6.4-8.2)
[2023-06-30] MEDS: Rosuvastatin 10 MG Tab PO SCH (08:52)
[2023-06-30] MEDS: Pantoprazole 40 MG in Sodium Chloride 0.9% 10 ML IVPUSH SCH ×2 (08:54→20:17)
[2023-06-30] MEDS ORDERED: atorvaSTATin 40 MG Tab PO SCH (09:00)
[2023-06-30] MEDS: Potassium Chloride 100 ML IV SCH ×2 (09:11→11:20)
[2023-06-30] MEDS: Formoterol/Mometasone 200-5 MCG 8.8 GM Inhaler INH SCH ×2 (09:17→20:17)
[2023-06-30] MEDS: HYDROmorphone 1 MG/ML Syringe IVPUSH PRN (11:07)
[2023-06-30] MEDS: Levothyroxine 125 MCG Tab PO SCH (11:32)
[2023-06-30] MEDS: Lisinopril/Hydrochlorothiazide 10-12.5 MG Tab PO SCH (17:46)
[2023-06-30] MEDS ORDERED: Magnesium Sulfate/Water 2 GM in Premix Bag 1 BAG IV ONE (20:02)
[2023-06-30] MEDS: traZODone 50 MG Tab PO SCH (20:17)
[2023-07-01] MEDS: Ciprofloxacin in D5W 400 MG in Premix Bag 1 BAG IV SCH ×4 (03:55→16:30)
[2023-07-01] MEDS: Acetaminophen 325 MG Tab PO PRN ×3 (03:55→14:09)
[2023-07-01] MEDS: Sodium Chloride 0.9% 1,000 ML IV SCH ×2 (03:55→13:54)
[2023-07-01] MEDS: metroNIDAZOLE/Normal Saline 500 MG in Premix Bag 1 BAG IV SCH ×3 (05:13→21:12)
[2023-07-01] MEDS: HYDROmorphone 1 MG/ML Syringe IVPUSH PRN ×2 (05:23→20:15)
[2023-07-01 06:10] LABS: BASOPHILS ABSOLUTE AUTO 0.02 K/uL (0.00-0.20); BASOPHILS PERCENT AUTO 0.3 % (0.0-1.0); EOSINOPHILS ABSOLUTE AUTO 0.21 K/uL (0.00-0.45); EOSINOPHILS PERCENT AUTO 3.4 % (0.0-6.0); HEMATOCRIT 33.9 % (37.0-47.0); HEMOGLOBIN 11.3 g/dL (12.0-16.0); IMMATURE GRAN ABSOLUTE AUTO 0.02 K/uL (0.00-0.05); IMMATURE GRAN PERCENT AUTO 0.3 % (0.0-0.4); LYMPHOCYTES ABSOLUTE AUTO 1.82 K/uL (1.00-4.80); LYMPHOCYTES PERCENT AUTO 29.3 % (24.0-44.0); MEAN CORPUSCULAR HEMOGLOBIN 29.3 pg (28.0-32.0); MEAN CORPUSCULAR HGB CONC 33.3 g/dL (32.0-36.0); MEAN CORPUSCULAR VOLUME 87.8 fL (83.0-99.0); MEAN PLATELET VOLUME 9.2 fL (9.4-12.3); MONOCYTES ABSOLUTE AUTO 0.29 K/uL (0.00-0.80); MONOCYTES PERCENT AUTO 4.7 % (0.0-8.0); NEUTROPHILS ABSOLUTE AUTO 3.85 K/uL (1.80-7.70); PLATELET COUNT,PLT 203 K/uL (150-400); RED BLOOD CELL COUNT 3.86 M/uL (4.10-5.30); WHITE BLOOD CELL COUNT,WBC 6.21 K/uL (3.9-11.3)
[2023-07-01] MEDS: Levothyroxine 125 MCG Tab PO SCH ×2 (06:17→06:33)
[2023-07-01] MEDS: Insulin Aspart 100 Units/ML 3 ML Pen SUBCUT SCH ×3 (06:33→16:28)
[2023-07-01 06:43] LABS: A/G RATIO 0.9 (0.9-1.6); ALBUMIN 2.6 g/dL (3.4-5.0); BILIRUBIN TOTAL 0.5 mg/dL (0.2-1.0); CREATININE 0.9 mg/dL (0.6-1.0); EST CRCL DRUG DOSING (CG) 59.81 mL/min; MAGNESIUM 1.9 mg/dL (1.8-2.4); POTASSIUM,K 3.5 mmol/L (3.5-5.1); PROTEIN TOTAL,TP 5.4 g/dL (6.4-8.2)
[2023-07-01] MEDS: Formoterol/Mometasone 200-5 MCG 8.8 GM Inhaler INH SCH ×2 (08:08→21:00)
[2023-07-01] MEDS: Lisinopril/Hydrochlorothiazide 10-12.5 MG Tab PO SCH (08:08)
[2023-07-01] MEDS: Rosuvastatin 10 MG Tab PO SCH (08:08)
[2023-07-01] MEDS: Pantoprazole 40 MG in Sodium Chloride 0.9% 10 ML IVPUSH SCH ×2 (08:09→20:56)
[2023-07-01] MEDS: traZODone 50 MG Tab PO SCH (20:55)
[2023-07-02] MEDS: Levothyroxine 125 MCG Tab PO SCH ×2 (05:55→07:14)
[2023-07-02] MEDS: metroNIDAZOLE/Normal Saline 500 MG in Premix Bag 1 BAG IV SCH (06:00)
[2023-07-02] MEDS: Ciprofloxacin in D5W 400 MG in Premix Bag 1 BAG IV SCH ×2 (06:00)
[2023-07-02 06:15] LABS: BASOPHILS ABSOLUTE AUTO 0.02 K/uL (0.00-0.20); BASOPHILS PERCENT AUTO 0.3 % (0.0-1.0); EOSINOPHILS ABSOLUTE AUTO 0.21 K/uL (0.00-0.45); EOSINOPHILS PERCENT AUTO 2.9 % (0.0-6.0); HEMATOCRIT 36.5 % (37.0-47.0); HEMOGLOBIN 11.8 g/dL (12.0-16.0); IMMATURE GRAN ABSOLUTE AUTO 0.02 K/uL (0.00-0.05); IMMATURE GRAN PERCENT AUTO 0.3 % (0.0-0.4); MEAN CORPUSCULAR HEMOGLOBIN 28.4 pg (28.0-32.0); MEAN CORPUSCULAR HGB CONC 32.3 g/dL (32.0-36.0); MEAN PLATELET VOLUME 9.5 fL (9.4-12.3); MONOCYTES ABSOLUTE AUTO 0.31 K/uL (0.00-0.80); MONOCYTES PERCENT AUTO 4.3 % (0.0-8.0); NEUTROPHILS ABSOLUTE AUTO 4.58 K/uL (1.80-7.70); NEUTROPHILS PERCENT AUTO 63.2 % (41.0-71.0); PLATELET COUNT,PLT 250 K/uL (150-400); RED BLOOD CELL COUNT 4.15 M/uL (4.10-5.30); WHITE BLOOD CELL COUNT,WBC 7.24 K/uL (3.9-11.3)
[2023-07-02 06:51] LABS: BILIRUBIN TOTAL 0.6 mg/dL (0.2-1.0); CALCIUM 8.7 mg/dL (8.5-10.1); CARBON DIOXIDE,CO2 28.4 mmol/L (21.0-32.0); CREATININE 0.9 mg/dL (0.6-1.0); EST CRCL DRUG DOSING (CG) 59.81 mL/min; POTASSIUM,K 3.4 mmol/L (3.5-5.1); PROTEIN TOTAL,TP 5.9 g/dL (6.4-8.2)
[2023-07-02] MEDS: Insulin Aspart 100 Units/ML 3 ML Pen SUBCUT SCH ×2 (07:15→12:45)
[2023-07-02] MEDS: Pantoprazole 40 MG in Sodium Chloride 0.9% 10 ML IVPUSH SCH (08:25)
[2023-07-02] MEDS: Rosuvastatin 10 MG Tab PO SCH (08:32)
[2023-07-02] MEDS: Lisinopril/Hydrochlorothiazide 10-12.5 MG Tab PO SCH (08:32)
[2023-07-02] MEDS: Formoterol/Mometasone 200-5 MCG 8.8 GM Inhaler INH SCH (08:32)
[2023-07-02] MEDS: Acetaminophen 325 MG Tab PO PRN (08:38)
== END 2023-07-02 14:28 | disposition home or self-care (01) | DRG 244 ==
LOC: MW.ED 01:20 → MW.MS 04:30 → OBSVTOIN 04:30 → MW.MS 06-30 16:25
PROVIDERS: ADMIT Family Medicine; ATTEND Internal Medicine
DX: K57.30 Diverticulosis of large intestine without perforation or abscess without bleeding (principal); I10 Essential (primary) hypertension; E11.9 Type 2 diabetes mellitus without complications; J44.9 Chronic obstructive pulmonary disease, unspecified; E03.9 Hypothyroidism, unspecified; E78.00 Pure hypercholesterolemia, unspecified; G47.30 Sleep apnea, unspecified; K29.90 Gastroduodenitis, unspecified, without bleeding; K58.9 Irritable bowel syndrome, unspecified; K21.9 Gastro-esophageal reflux disease without esophagitis; M19.90 Unspecified osteoarthritis, unspecified site; Z90.89 Acquired absence of other organs; Z85.59 Personal history of malignant neoplasm of other urinary tract organ; Z90.5 Acquired absence of kidney; Z79.51 Long term (current) use of inhaled steroids; Z79.84 Long term (current) use of oral hypoglycemic drugs; Z88.5 Allergy status to narcotic agent; Z79.899 Other long term (current) drug therapy; Z88.0 Allergy status to penicillin; Z79.890 Hormone replacement therapy; Z98.890 Other specified postprocedural states
CPT/HCPCS: 36415; 72195; 72195-26; 74177; 74177-26; 80053; 81001; 82947; 83605; 83690; 83735; 85025; 86140; 87040; 87045; 87046; 87324; 87449; 87899; 93005; 93010; 93976; 93976-26; 96361; 96365; 96366; 96367; 96368; 96375; 96376; 99222; 99231; 99239; 99284; 99285-25; A9270-GY; C9113; G0378; J0744; J1170; J2405; J2765; J3475; J3480; J3490; J7030; Q9967